=== PATIENT | male | born 1955 | race Caucasian/White ===

== ENCOUNTER → 2019-06-18 | Outpatient (CLI) | payer BC | END | disposition home or self-care (01) | LOC: CFH 09:42 | PROVIDERS: ATTEND Urology | DX: N13.30 Unspecified hydronephrosis (principal) | CPT/HCPCS: 76770 ==

== ENCOUNTER → 2020-04-30 | Outpatient (CLI) | payer MEDICARE | END | disposition home or self-care (01) | LOC: CFH 09:40 | PROVIDERS: ATTEND Family Medicine | DX: J32.9 Chronic sinusitis, unspecified (principal) | CPT/HCPCS: 70486 ==

== ENCOUNTER → 2020-06-17 | Outpatient (CLI) | payer MEDICARE | END | disposition home or self-care (01) | LOC: CFH 10:16 | PROVIDERS: ATTEND Urology | DX: N13.30 Unspecified hydronephrosis (principal); E29.1 Testicular hypofunction; R97.20 Elevated prostate specific antigen [PSA]; N40.1 Benign prostatic hyperplasia with lower urinary tract symptoms; R79.89 Other specified abnormal findings of blood chemistry; Z80.42 Family history of malignant neoplasm of prostate | CPT/HCPCS: 76770 ==